=== PATIENT | male | born 1955 | race Caucasian/White ===

== ENCOUNTER 2018-04-28 07:19 | Day surgery (SDC) | payer SELFPAY ==
[2018-04-14 13:05] LABS: Absolute Lymphocytes (CBC) 2.6 K/uL (0.7-4.9); Absolute Monocytes 0.7 K/uL (0.1-1.3); Absolute Neutrophil 6.6 K/uL (1.8-8.0); Basophils % 1.2 % (0-1.3); Eosinophils % 1.6 % (0-4.4); Hematocrit 48.6 % (39.6-49.0); Lymphocytes % 25.6 % (15.3-44.8); MPV 7.4 fL (7.6-11.3); Monocytes % 6.9 % (3.3-12.3); RBC Red Blood Cell Count 5.47 M/uL (4.33-5.43)
[2018-04-14 13:18] LABS: BUN Blood Urea Nitrogen 7 mg/dL (7-18); Bicarbonate 29 mmol/L (21-32); Glucose Level 94 mg/dL (74-106); Sodium Level 141 mmol/L (136-145)
[2018-04-28] MEDS ORDERED: LIDOCAINE 2% MPF 5 ML VIAL ONE (08:18)
[2018-04-28] MEDS ORDERED: ROCURONIUM 50 MG/5 ML VIAL IV ONE (08:18)
[2018-04-28] MEDS ORDERED: MIDAZOLAM HCL 2 MG/2 ML INJ ONE (08:18)
[2018-04-28] MEDS ORDERED: PROPOFOL 200 MG/20 ML VIAL IV ONE (08:18)
[2018-04-28] MEDS ORDERED: FENTANYL CITR 100 MCG/2 ML ONE (08:18)
[2018-04-28] MEDS ORDERED: DEXAMETHASONE 4 MG/ML VIAL ONE (08:19)
[2018-04-28] MEDS ORDERED: BUPIVACA 0.5%/EPI 0.0005%/PF 30 ML VIAL ONE (08:19)
[2018-04-28] MEDS ORDERED: CEFAZOLIN/SWI 1gm 1 GM/10 ML SYR ONE (08:28)
[2018-04-28] MEDS ORDERED: Ringers Lactate 1,000 ML IV ONE (08:28)
[2018-04-28] MEDS ORDERED: GLYCOPYRROLATE 0.2 MG/ML SYR ONE (09:34)
[2018-04-28] MEDS ORDERED: KETOROLAC 30 MG/ML INJ ONE (09:58)
--- NOTE | 2018-04-28 09:59 | P.OP ---
Preoperative diagnosis: RIGHT inguinal hernia Postoperative diagnosis: RIGHT inguinal hernia Primary procedure: Open Right inguinal hernia repair with mesh Anesthesia: Gen + Local Estimated blood loss: <2cc Specimen: Cord Lipoma, hernia sack Findings: Large indirect inguinal hernia Complications: None Implants: Plug and Patch Hernia Repair System - Medium Transferred to: Recovery Room Condition: Good
[2018-04-28] MEDS: HYDROMORPHONE HCL 2 MG/ML inj ONE ×4 (10:14→10:29)
[2018-04-28] MEDS ORDERED: ONDANSETRON HCL 40 MG/20 ML VIAL ONE (10:25)
[2018-04-28] MEDS: HYDROMORPHONE HCL 1 MG/ML INJ ONE ×2 (10:34→10:39)
[2018-04-28] MEDS: MEPERIDINE HCL 50 MG/ML AMP ONE ×2 (10:41→10:47)
[2018-04-28] MEDS ORDERED: HYDROCODONE/APAP 5/325 MG TAB ONE (11:44)
--- NOTE | 2018-04-28 12:03 | OP ---
Date of Procedure: 04/28/2018 Surgeon: Isra Oliveros MD, Preoperative Diagnosis: Right inguinal hernia. Postoperative Diagnosis: Right inguinal hernia. Procedure Performed: Open right inguinal hernia repair with mesh. Anesthesia: General endotracheal plus local with 0.5% Marcaine with epinephrine. Estimated Blood Loss: Less than 2 cc. Specimen: 1.Cord lipoma. 2.Hernia sac. Findings: Large indirect inguinal hernia. Complications: None. Implants: Plug and patch hernia repair system medium size used. Disposition: Transferred to recovery room in good condition. Procedure In Detail: After informed consent was obtained, the patient was brought to the operating r oom, prepped and draped in the usual sterile fashion. After adequate anesthesia was achieved, a righ t inguinal incision was made down through subcutaneous tissues and dissected down through Camper's fa scia and Dinora's fascia to expose the external oblique aponeurosis. This was opened sharply in its entirety protecting the ilioinguinal and iliohypogastric nerves throughout the procedure. Dissection continued down to encircle the spermatic cord and structures, which were identified. There was a la rge indirect inguinal hernia with a large cord lipoma as well as an indirect inguinal hernia sac prot ruding from the medial aspect. This was circumferentially dissected free from the spermatic cord and structures. The spermatic cord and structures were encircled with a Gillette drain and elevated. Af ter appropriately cleansing off and removing all hernia sac components from the spermatic cord, the h ernia sac was opened and elevated, ligated and sent off for pathologic examination. The cord lipoma was also removed and sent off for pathologic examination. The Medium hernia plug and patch repair sy stem was then brought into the field. Three stay sutures were placed circumferentially at 60 degree angles in the deep inguinal ring and secured to the mesh. The plug was then placed through the prepe ritoneal space, flattened out and then secured using the 0 PDS sutures with good approximation of tis sues. The spermatic cord was noted to be in good anatomic position. At this point, the hernia mesh was then sized appropriately with a Medium mesh, which was sized appropriately, placed along the pubi c tubercle and secured to the fascia over the pubic tubercle medially and all medial and lateral analia ving edges, and to reconstitute the deep inguinal ring, it was reconstituted with 0 PDS suture, which is the same suture used to secure the mesh to the medial and lateral shelving edges as well as the p ubic tubercle. The area was copiously irrigated multiple times until completely clear. Camper's fas lorene, Dinora's fascia and external oblique aponeurosis which was found to be quite thin and friable we re closed en bloc with a 3-0 running Vicryl suture. Skin was once again irrigated and the dermal lay er was closed with interrupted 3-0 Vicryl sutures, and skin was closed with a 4-0 Monocryl in a runni ng fashion. Dermabond was placed overtop. The patient tolerated the procedure well without evidence of complication and transferred to the PACU in good condition. All counts were correct at the end o f the case. SUMA/ZULEIMA Voice ID: [id number] Report ID: [id number]
== END 2018-04-28 12:06 | disposition home or self-care (01) ==
LOC: OR 07:19
PROVIDERS: ATTEND Surgery
PROC: 0YU50JZ Supplement Right Inguinal Region with Synthetic Substitute, Open Approach (ICD-10-PCS; principal; 2018-04-28 08:30)
DX: K40.90 Unilateral inguinal hernia, without obstruction or gangrene, not specified as recurrent (principal)
CPT/HCPCS: 36415; 80048; 85025; 88302; 93005; J0690; J1170; J2175; J2250; J2405; J2704; J3010

== ENCOUNTER 2018-11-12 18:24 | Emergency (ER) | payer SELFPAY ==
[2018-11-12 19:35] LABS: Basophils % 0.8 % (0-1.3); Hematocrit 50.8 % (39.6-49.0); Lymphocytes % 19.5 % (15.3-44.8); MPV 7.3 fL (7.6-11.3); RBC Red Blood Cell Count 5.77 M/uL (4.33-5.43)
[2018-11-12 19:56] LABS: Albumin 4.4 g/dL (3.4-5.0); Bilirubin Direct 0.3 mg/dL (0-0.2); Bilirubin Total 1.1 mg/dL (0.2-1.0); Potassium 3.1 mmol/L (3.5-5.1); Protein, Total 8.1 g/dL (6.4-8.2)
[2018-11-12] MEDS ORDERED: ONDANSETRON 4 MG/2 ML VIAL ONE ×2 (20:43→22:15)
[2018-11-12] MEDS ORDERED: NA CHLORIDE 0.9% 1,000 ML ONE (20:43)
[2018-11-12] MEDS ORDERED: KETOROLAC 30 MG/ML INJ ONE (20:43)
--- NOTE | 2018-11-12 20:44 | RAD REPORT ---
EXAM DESCRIPTION: US - Abdomen Exam Limited - 11/12/2018 8:35 pm CLINICAL HISTORY: ABD PAIN COMPARISON: <Comparisons> FINDINGS: The gallbladder demonstrates no gallstones. No pericholecystic fluid or gallbladder wall t hickening. The common bile duct is normal measuring 3 mm. The liver demonstrates no findings of intrahepatic biliary dilatation. IMPRESSION: Unremarkable examination.
[2018-11-12 21:57] LABS: Urine Blood 1+ (NEG); Urine Glucose NEGATIVE (NEG); Urine Protein 2+ (NEG)
--- NOTE | 2018-11-12 22:32 | EDPHYS ---
Physician Documentation [facility] Name: Shekhar Neumann Age: 63 yrs Sex: Male : 1955 Arrival Date: 11/12/2018 Time: 18:27 Bed 24 Private MD: ED Physician Peewee Menendez HPI: 11/12 19:58 This 63 yrs old Male presents to ER via Ambulatory with complaints of kb Vomiting. 19:58 The patient presents with abdominal pain in the right upper quadrant. Onset: The kb symptoms/episode began/occurred 5 day(s) ago. The symptoms do not radiate. Associated signs and symptoms: Pertinent positives: nausea and vomiting. The symptoms are described as constant. Modifying factors: The symptoms are alleviated by nothing, the symptoms are aggravated by nothing. Severity of pain: At its worst the pain was moderate in the emergency department the pain is unchanged. The patient has not experienced similar symptoms in the past. The patient has not recently seen a physician. Pt reports vomiting since Saturday night and now RUQ pain as well. . Historical: - Allergies: 19:19 No Known Allergies; hb - Home Meds: 19:19 None [Active]; hb - PMHx: 19:19 None; hb - PSHx: 19:19 Hernia repair; hb - Immunization history:: Adult Immunizations up to date. - Social history:: Smoking status: Patient/guardian denies using tobacco. - Ebola Screening: : Patient negative for fever greater than or equal to 101.5 degrees Fahrenheit, and additional compatible Ebola Virus Disease symptoms Patient denies exposure to infectious person Patient denies travel to an Ebola-affected area in the 21 days before illness onset No symptoms or risks identified at this time. ROS: 19:58 Constitutional: Negative for fever, chills, and weight loss, Cardiovascular: Negative kb for chest pain, palpitations, and edema, Respiratory: Negative for shortness of breath, cough, wheezing, and pleuritic chest pain, Back: Negative for injury and pain, : Negative for injury, bleeding, discharge, and swelling, MS/Extremity: Negative for injury and deformity, Skin: Negative for injury, rash, and discoloration, Neuro: Negative for headache, weakness, numbness, tingling, and seizure. 19:58 Abdomen/GI: Positive for abdominal pain, nausea and vomiting. Exam: 20:02 Constitutional: This is a well developed, well nourished patient who is awake, alert, kb and in no acute distress. Head/Face: Normocephalic, atraumatic. ENT: Nares patent. No nasal discharge, no septal abnormalities noted. Tympanic membranes are normal and external auditory canals are clear. Oropharynx with no redness, swelling, or masses, exudates, or evidence of obstruction, uvula midline. Mucous membranes moist. Neck: Trachea midline, no thyromegaly or masses palpated, and no cervical lymphadenopathy. Supple, full range of motion without nuchal rigidity, or vertebral point tenderness. No Meningismus. Chest/axilla: Normal chest wall appearance and motion. Nontender with no deformity. No lesions are appreciated. Cardiovascular: Regular rate and rhythm with a normal S1 and S2. No gallops, murmurs, or rubs. Normal PMI, no JVD. No pulse deficits. Respiratory: Lungs have equal breath sounds bilaterally, clear to auscultation and percussion. No rales, rhonchi or wheezes noted. No increased work of breathing, no retractions or nasal flaring. Skin: Warm, dry with normal turgor. Normal color with no rashes, no lesions, and no evidence of cellulitis. MS/ Extremity: Pulses equal, no cyanosis. Neurovascular intact. Full, normal range of motion. Neuro: Awake and alert, GCS 15, oriented to person, place, time, and situation. Cranial nerves II-XII grossly intact. Motor strength 5/5 in all extremities. Sensory grossly intact. Cerebellar exam normal. Normal gait. 20:02 Abdomen/GI: Inspection: abdomen appears normal, Bowel sounds: normal, Palpation: soft, in all quadrants, moderate abdominal tenderness, in the right upper quadrant, mass noted to right inguinal area that pt reports is always there. Vital Signs: 19:19 BP 143 / 102; Pulse 68; Resp 16; Temp 98.3; Pulse Ox 98% ; Weight 77.11 kg; Height 5 hb ft. 7 in. (170.18 cm); Pain 5/10; 20:05 BP 134 / 102; Pulse 83; Resp 17 S; Pulse Ox 99% on R/A; ca1 21:22 BP 118 / 75; Pulse 66; Resp 17 S; Pulse Ox 98% on R/A; ca1 22:19 BP 147 / 105; Pulse 65; Resp 17 S; Pulse Ox 100% on R/A; ca1 22:50 BP 147 / 104; Pulse 71; Resp 16 S; Pulse Ox 99% on R/A; ca1 19:19 Body Mass Index 26.63 (77.11 kg, 170.18 cm) hb MDM: 19:19 Patient medically screened. kb 20:02 Data reviewed: vital signs, nurses notes. Data interpreted: Pulse oximetry: on room air kb is 98 %. Interpretation: normal. 22:04 Transition of care: After a detail discussion of the patient's case, care is kb transferred to [facility]. 11/12 19:19 Order name: Basic Metabolic Panel kb 11/12 19:19 Order name: CBC with Diff kb 11/12 19:19 Order name: Hepatic Function kb 11/12 19:19 Order name: Lipase; Complete Time: 19:57 kb 11/12 19:20 Order name: Basic Metabolic Panel; Complete Time: 19:57 EDMS 11/12 19:20 Order name: CBC with Automated Diff; Complete Time: 19:44 EDMS 11/12 19:20 Order name: Liver (Hepatic) Function; Complete Time: 19:57 EDMS 11/12 19:31 Order name: US Abdomen Limited; Complete Time: 20:59 kb 11/12 20:34 Order name: CT Abd/Pelvis - IV Contrast Only; Complete Time: 15:50 kb 11/12 21:14 Order name: Urine Dipstick--Ancillary (enter results); Complete Time: 22:00 mw2 11/12 19:19 Order name: IV Saline Lock; Complete Time: 19:23 kb 11/12 19:19 Order name: Labs collected and sent; Complete Time: 19:23 kb Administered Medications: 20:40 Drug: Zofran 4 mg Route: IVP; Site: right antecubital; ca1 22:15 Follow up: Response: No adverse reaction; Nausea unchanged ca1 20:45 Drug: TORadol - Ketorolac 15 mg Route: IVP; Site: right antecubital; ca1 22:23 Follow up: Response: No adverse reaction; Pain is decreased ca1 20:48 Drug: NS 0.9% 1000 ml Route: IV; Rate: 1000 ml; Site: right antecubital; ca1 21:50 Follow up: Response: No adverse reaction; IV Status: Completed infusion; IV Intake: ca1 1000ml 22:18 Drug: Zofran 4 mg Route: IVP; Site: right antecubital; ca1 22:38 Follow up: Response: No adverse reaction; Nausea is decreased ca1 22:46 Drug: Potassium Chloride 40 mEq Route: PO; ca1 22:48 Follow up: Response: Medication administered at discharge. ca1 22:48 Drug: Bentyl 20 mg Route: PO; ca1 22:48 Follow up: Response: Medication administered at discharge. ca1 Disposition: 11/13 05:12 Co-signature as Attending Physician, Peewee Menendez MD [facility] . Disposition: 11/12/18 22:31 Discharged to Home. Impression: Enteritis unspecified, Hypokalemia. - Condition is Stable. - Discharge Instructions: Abdominal Pain, Adult, Potassium Content of Foods, Viral Gastroenteritis, Adult, Hypokalemia. - Prescriptions for promethazine 25 mg Oral Tablet - take 1 tablet by ORAL route every 6 hours As needed; 20 tablet. Cipro 500 mg Oral Tablet - take 1 tablet by ORAL route every 12 hours for 7 days; 14 tablet. - Work release form, Medication Reconciliation Form, Thank You Letter, Antibiotic Education, Prescription Opioid Use form. - Follow up: Private Physician; When: 1 - 2 days; Reason: Recheck today's complaints, Continuance of care, Re-evaluation by your physician. Follow up: Emergency Department; When: As needed; Reason: Worsening of condition. Signatures: Dispatcher [employer] EDWA Vannessa Cole, ALIZAC INSERTER OPERATOR-Ckb Madonna Garcia FNP-C INSERTER OPERATOR-CsnRowan Solano, RN RN Peewee Menendez MD MD ps1 Brenda Olmstead RN RN ca1 Corrections: (The following items were deleted from the chart) 11/12 22:51 22:31 11/12/2018 22:31 Discharged to Home. Impression: Enteritis unspecified; ca1 Hypokalemia. Condition is Stable. Forms are Medication Reconciliation Form, Thank You Letter, Antibiotic Education, Prescription Opioid Use. Follow up: Private Physician; When: 1 - 2 days; Reason: Recheck today's complaints, Continuance of care, Re-evaluation by your physician. Follow up: Emergency Department; When: As needed; Reason: Worsening of condition. snw 11/13 15:51 11/12 20:02 Abdomen/GI: Inspection: abdomen appears normal, Bowel sounds: normal, kb Palpation: soft, in all quadrants, moderate abdominal tenderness, in the right upper quadrant, kb
--- NOTE | 2018-11-12 22:32 | ER ---
Nurse's Notes [facility] Name: Shekhar Neumann Age: 63 yrs Sex: Male : 1955 Arrival Date: 11/12/2018 Time: 18:27 Bed 24 Private MD: Diagnosis: Enteritis unspecified;Hypokalemia Presentation: 11/12 19:17 Presenting complaint: N/V and RLQ pain x 4-5 days. Not tolerating fluids. Transition of hb care: patient was not received from another setting of care. Onset of symptoms was November 08, 2018. Risk Assessment: Do you want to hurt yourself or someone else? Patient reports no desire to harm self or others. Care prior to arrival: None. 19:17 Method Of Arrival: Ambulatory hb 19:17 Acuity: ALPESH 3 hb 19:24 Initial Sepsis Screen: Does the patient meet any 2 criteria? No. Patient's initial ca1 sepsis screen is negative. Does the patient have a suspected source of infection? No. Patient's initial sepsis screen is negative. Triage Assessment: 19:24 GI: Reports. ca1 Historical: - Allergies: 19:19 No Known Allergies; hb - Home Meds: 19:19 None [Active]; hb - PMHx: 19:19 None; hb - PSHx: 19:19 Hernia repair; hb - Immunization history:: Adult Immunizations up to date. - Social history:: Smoking status: Patient/guardian denies using tobacco. - Ebola Screening: : Patient negative for fever greater than or equal to 101.5 degrees Fahrenheit, and additional compatible Ebola Virus Disease symptoms Patient denies exposure to infectious person Patient denies travel to an Ebola-affected area in the 21 days before illness onset No symptoms or risks identified at this time. Screenin:20 Abuse screen: Denies threats or abuse. Denies injuries from another. Nutritional ca1 screening: No deficits noted. Tuberculosis screening: No symptoms or risk factors identified. Fall Risk IV access (20 points). Assessment: 19:20 General: Appears in no apparent distress. uncomfortable, Behavior is calm, cooperative, ca1 appropriate for age. Pain: Complains of pain in suprapubic area and right inguinal area Pain radiates to low back area Pain currently is 9 out of 10 on a pain scale. Pain began 5 days ago Is intermittent. Neuro: Level of Consciousness is awake, alert, obeys commands, Oriented to person, place, time, situation. Cardiovascular: Heart tones S1 S2 present Capillary refill < 3 seconds Patient's skin is warm and dry. Pulses are all present. Edema is absent. Respiratory: Airway is patent Trachea midline Respiratory effort is even, unlabored, Respiratory pattern is regular, symmetrical. GI: Abdomen is flat, non-distended, Bowel sounds present X 4 quads. Abd is soft and non tender X 4 quads. Patient currently denies diarrhea, nausea, vomiting. : No deficits noted. No signs and/or symptoms were reported regarding the genitourinary system. EENT: No deficits noted. No signs and/or symptoms were reported regarding the EENT system. Derm: Skin is intact, is healthy with good turgor, Skin is pink, warm \T\ dry. Musculoskeletal: Circulation, motion, and sensation intact. Capillary refill < 3 seconds, Range of motion: intact in all extremities. 20:05 Reassessment: Patient appears in no apparent distress at this time. Patient and/or ca1 family updated on plan of care and expected duration. Pain level reassessed. Patient is alert, oriented x 3, equal unlabored respirations, skin warm/dry/pink. 21:22 Reassessment: Patient appears in no apparent distress at this time. Patient and/or ca1 family updated on plan of care and expected duration. Pain level reassessed. Patient is alert, oriented x 3, equal unlabored respirations, skin warm/dry/pink. 22:19 Reassessment: Patient appears in no apparent distress at this time. Patient and/or ca1 family updated on plan of care and expected duration. Pain level reassessed. Patient is alert, oriented x 3, equal unlabored respirations, skin warm/dry/pink. Pt c/o nausea, notified provider. Orders given. 22:50 Reassessment: Patient appears in no apparent distress at this time. Patient is alert, ca1 oriented x 3, equal unlabored respirations, skin warm/dry/pink. Patient states feeling better. Vital Signs: 19:19 BP 143 / 102; Pulse 68; Resp 16; Temp 98.3; Pulse Ox 98% ; Weight 77.11 kg; Height 5 hb ft. 7 in. (170.18 cm); Pain 5/10; 20:05 BP 134 / 102; Pulse 83; Resp 17 S; Pulse Ox 99% on R/A; ca1 21:22 BP 118 / 75; Pulse 66; Resp 17 S; Pulse Ox 98% on R/A; ca1 22:19 BP 147 / 105; Pulse 65; Resp 17 S; Pulse Ox 100% on R/A; ca1 22:50 BP 147 / 104; Pulse 71; Resp 16 S; Pulse Ox 99% on R/A; ca1 19:19 Body Mass Index 26.63 (77.11 kg, 170.18 cm) hb ED Course: 18:27 Patient arrived in ED. rg4 19:13 Brenda Olmstead, RN is Primary Nurse. ca1 19:18 Triage completed. hb 19:19 Vannessa Cole FNP-C is PHCP. kb 19:19 Peewee Menendez MD is Attending Physician. kb 19:19 Arm band placed on. hb 19:20 Patient has correct armband on for positive identification. Placed in gown. Bed in low ca1 position. Call light in reach. Side rails up X 1. Pulse ox on. NIBP on. Warm blanket given. 19:20 No provider procedures requiring assistance completed. Initial lab(s) drawn, by nm, ca1 sent to lab. Inserted saline lock: 20 gauge in right antecubital area, using aseptic technique. Blood collected. 19:31 Basic Metabolic Panel Sent. tr5 19:31 CBC with Diff Sent. tr5 19:31 Hepatic Function Sent. tr5 20:40 US Abdomen Limited In Process Unspecified. EDMS 21:02 Ultrasound completed. Patient tolerated well. lc3 21:12 CT completed. Patient tolerated procedure well. Patient moved to CT. Patient moved back or from CT. 21:19 CT Abd/Pelvis - IV Contrast Only In Process Unspecified. EDMS 21:52 Urine Dipstick--Ancillary (enter results) Sent. ca1 22:03 PHCP role handed off by Vannessa Cole FNP-C snw 22:03 Madonna Garcia FNP-C is PHCP. snw 22:50 IV discontinued, intact, bleeding controlled, No redness/swelling at site. Pressure ca1 dressing applied. Administered Medications: 20:40 Drug: Zofran 4 mg Route: IVP; Site: right antecubital; ca1 22:15 Follow up: Response: No adverse reaction; Nausea unchanged ca1 20:45 Drug: TORadol - Ketorolac 15 mg Route: IVP; Site: right antecubital; ca1 22:23 Follow up: Response: No adverse reaction; Pain is decreased ca1 20:48 Drug: NS 0.9% 1000 ml Route: IV; Rate: 1000 ml; Site: right antecubital; ca1 21:50 Follow up: Response: No adverse reaction; IV Status: Completed infusion; IV Intake: ca1 1000ml 22:18 Drug: Zofran 4 mg Route: IVP; Site: right antecubital; ca1 22:38 Follow up: Response: No adverse reaction; Nausea is decreased ca1 22:46 Drug: Potassium Chloride 40 mEq Route: PO; ca1 22:48 Follow up: Response: Medication administered at discharge. ca1 22:48 Drug: Bentyl 20 mg Route: PO; ca1 22:48 Follow up: Response: Medication administered at discharge. ca1 Intake: 21:50 IV: 1000ml; Total: 1000ml. ca1 Outcome: 22:31 Discharge ordered by MD. snw 22:50 Discharged to home ambulatory. ca1 22:50 Condition: stable 22:50 Discharge instructions given to patient, Instructed on discharge instructions, follow up and referral plans. medication usage, Demonstrated understanding of instructions, follow-up care, medications, Prescriptions given X 2. 22:51 Patient left the ED. ca1 Signatures: Dispatcher [employer] EDMS Vannessa Cole, AGRICULTURAL CROP FARM MANAGER-C AGRICULTURAL CROP FARM MANAGER-Ckb Madonna Garcia FNP-C AGRICULTURAL CROP FARM MANAGER-Csnw Joie Zimmer Heather, RN RN hb Garcia, Rubi rg4 Erick Alvarado Cheryl, RN RN ca1 Stephan Washington RN RN tr5 Corrections: (The following items were deleted from the chart) 22:21 22:19 Reassessment: Patient appears in no apparent distress at this time. Patient ca1 and/or family updated on plan of care and expected duration. Pain level reassessed. Patient is alert, oriented x 3, equal unlabored respirations, skin warm/dry/pink. ca1 22:21 21:15 Reassessment: Patient appears in no apparent distress at this time. Patient ca1 and/or family updated on plan of care and expected duration. Pain level reassessed. Patient is alert, oriented x 3, equal unlabored respirations, skin warm/dry/pink. ca1
[2018-11-12] MEDS ORDERED: POTASSIUM CL SA 10 MEQ TAB PO ONE (22:41)
[2018-11-12] MEDS ORDERED: DICYCLOMINE HCL 10 MG CAP ONE (22:48)
[2018-11-12 22:57] VITALS: TEMP 98.3
[2018-11-12 23:02] VITALS: BP 147/104; O2SAT 99
--- NOTE | 2018-11-13 11:12 | RAD REPORT ---
EXAM DESCRIPTION: Abdomen Pelvis W Contrast CLINICAL HISTORY: Right lower quadrant pain. Nausea and vomiting.. TECHNIQUE: CT scan of the abdomen and pelvis was performed with intravenous contrast. 5 mm axial images were obtained along with coronal and sagittal reformatted images. DOSE OPTIMIZATION: This facility uses dose optimization techniques as appropriate to perform exams, including at least one of the following techniques: 1. Automated exposure control. 2. Adjustment of the mA and/or kV according to patient size (this includes techniques or standardized protocols for targeted exams where dose is matched to the indication/reason for exam, i.e. extremiti es or head). 3. Use of iterative reconstructive technique. INTRAVENOUS CONTRAST: Not documented. Please refer to medical record. COMPARISON: None. FINDINGS: Lung Bases: No active infiltrates. Small hiatal hernia. Liver: There is focal fatty infiltration adjacent to the gallbladder fossa. Spleen: There are granulomatous calcifications. Pancreas: Normal. Gallbladder: Normal. Adrenal Glands: Normal. Kidneys: There are renal cortical cysts bilaterally. The largest is on the right kidney measuring 1.6 x 1.2 cm. Retroperitoneal Structures: There is moderately severe atherosclerotic disease of abdominal aorta and iliac arteries. Bowel Survey: There are multiple mildly distended small bowel loops with short air-fluid levels sugge sting enteritis. The distal ileum is unremarkable. The appendix is unremarkable. Prostate Gland: Normal in size. Urinary Bladder: Normal. Peritoneal Cavity: Normal. Mesenteric Structures: Normal. Abdominal Wall: There is a small fluid collection in the superior aspect of the right inguinal canal with adjacent ed ant. This may represent a postoperative seroma or hematoma. This measures 1.7 x 2.3 cm. Bony Structures: No suspicious lesions. IMPRESSION: 1. Loculated fluid collection in the superior aspect of the right inguinal canal with ad jacent edema. This may represent a seroma or hematoma. 2. Findings suggestive of enteritis. Electronically signed by: Anthony De La Cruz MD 11/12/2018 9:41 PM CDT Due to temporary technical issues with the PACS/Fluency reporting system, reports are being signed by the in house radiologist as a courtesy to ensure prompt reporting. The interpreting radiologist is f ully responsible for the content of the report.
== END 2018-11-12 22:51 | disposition home or self-care (01) ==
LOC: ER 18:24
DX: K52.9 Noninfective gastroenteritis and colitis, unspecified (principal); E87.6 Hypokalemia
CPT/HCPCS: 36415; 74177; 76705; 80048; 80076; 81003; 83690; 85025; J2405; J7030; Q9967